=== PATIENT | male | born 1985 | race Two or more races ===

== ENCOUNTER 2023-12-25 20:29 | Emergency (ER) | payer MEDICAID, OTHER ==
[~2023-12-25] VITALS: Ht 175.3 cm; Wt 85.0 kg
[2023-12-25 20:45] VITALS: BP 132/93; PULSE 103; RESP 18; TEMP 98.9
[2023-12-25] MEDS ORDERED: IBUP-1456 PO (21:23)
[2023-12-25 21:35] VITALS: O2SAT 95
== END 2023-12-25 21:56 | disposition home or self-care (01) ==
LOC: ER 20:29
DX: S62.624A Displaced fracture of middle phalanx of right ring finger, initial encounter for closed fracture (principal); W22.8XXA Striking against or struck by other objects, initial encounter; Y93.89 Activity, other specified; Y92.89 Other specified places as the place of occurrence of the external cause; Y99.8 Other external cause status
CPT/HCPCS: 29130; 73130